=== PATIENT | male | born 1980 | race Caucasian/White ===

== ENCOUNTER 2023-09-28 13:25 | Emergency (ER) | payer OTHER, SELFPAY ==
[2023-09-28 13:46] VITALS: BP 194/134
[2023-09-28 14:08] VITALS: BMI 30.6
[2023-09-28 14:13] VITALS: BP 154/114
--- NOTE | 2023-09-28 14:17 | ED.GENMED ---
History of Present Illness
General
Chief Complaint: Blood Pressure Problem
Source: patient
Exam Limitations: none
Time Seen by Provider: 09/28/23 14:08
Nursing documentation reviewed up to this point in time: agreed with
Travel History
Have you had any contact with someone who has COVID-19?: No
Do you have any symptoms of coronavirus? Fever > 100 degrees, chills, cough, shortness of breath, sore throat, loss of taste or smell, muscle aches, or headache?: No
History of Present Illness
History of Present Illness:
43-year-old male with past medical history of hypertension, bipolar disorder who presents to the emergency room from urgent care�he presents for evaluation of insomnia but was found to be hypertensive and tachycardic and was sent to the emergency
room to be assessed. Patient reports that for the past 3 days he has had significant difficulty sleeping�he says that he has slept about 7 hours over the past 3 nights, last night said that he basically did not get any sleep. He says that he went
to urgent care to discuss potential sleep aid and while he was there they found that he was hypertensive and tachycardic and so he was referred to the emergency department. Patient denies any symptoms�denies any chest pain, headache, shortness of
breath, dizziness, change in vision, change in speech, focal weakness or numbness or any other complaints. He does note that this morning--because he did not sleep last night and because he has 2 kids and is a single parent with a full-time job--he
took an old dose of Adderall he had leftover from an old prescription and also drank 2 cups of coffee so that he could function for the day and he believes this may have contributed to his hypertension and tachycardia. He also reports that he is
overdue for refill on his lisinopril which he takes daily and has not been able to take over the past 2 days.
Past History
Past History
ED Past Medical History: None
ED Past Surgical History: None
Social History
Tobacco: Smoker
Living: with family
Review of Systems
Review of Systems
All Other Systems: ROS reviewed and negative except as documented in HPI and ROS
Constitutional: Denies fever
Respiratory: Denies cough or trouble breathing
Cardiac: Denies chest pain or palpitations
ABD/GI: Denies abdominal pain, nausea or vomiting
: Denies flank pain
Musculoskeletal: Denies neck pain or back pain
Neurological: Denies dizzy, headache, weakness or numbness
Phy Exam
Physical Exam
Physical Exam:
General: Awake, alert, oriented x3; no acute distress
Head: Normocephalic, atraumatic
Eyes: Conjunctiva normal, EOMI
Throat: Airway intact, handling secretions
Neck: Trachea midline, supple without meningismus
Lungs: Clear to auscultation bilaterally, no wheezing, rales, rhonchi
Heart: Tachycardia with regular rhythm, no murmurs, gallops, or rubs
Abd: Soft, non distended, nontender
Neuro: Cranial nerves grossly intact, speech fluid
Skin: no rash
Extremities: No edema in extremities, equal pulses in all extremities
Scores
Heart Failure Risk
Heart Failure Risk Score: Not Applicable
Heart Score for Chest Pain Patients
STEMI patient?: Not applicable
Withdrawal Assessment of Alcohol
Withdrawal Assessment Completed?: Not applicable
Course
Orders/Labs/Results
Orders:
Orders
09/28/23 13:50
Electrocardiogram (*1) Urgent
Reason for Study: Hypertension, Benign
EKG- Treatment ONCE
09/28/23 14:07
Complete Blood Count/With Diff Urgent
Comprehensive Metabolic Panel Urgent
Troponin I Urgent
09/28/23 14:17
Lisinopril [Zestril] 10 mg PO NOW STA
Abnormal Lab Results
09/28/23
14:07
WBC 11.3 H 10^3/uL
(4.8-10.8)
Absolute Neuts (auto) 7.0 H 10^3/uL
(1.4-6.5)
Absolute Monos (auto) 0.9 H 10^3/uL
(0.1-0.6)
Glucose 124 H mg/dl
(70-99)
Calcium 10.9 H mg/dl
(8.4-10.2)
Total Protein 8.3 H g/dl
(6.3-8.2)
Albumin 5.2 H g/dl
(3.5-5.0)
09/28/23 14:07
09/28/23 14:07
Vital Signs
Initial and Last Documented VS:
Initial Vital Signs
Temp Pulse Resp BP Pulse Ox
36.8 C 137 22 194/134 99
09/28/23 13:46 09/28/23 13:46 09/28/23 13:46 09/28/23 13:46 09/28/23 13:46
Last Documented Vital Signs
Temp Pulse Resp BP Pulse Ox
36.8 C 94 18 164/104 94
09/28/23 13:46 09/28/23 14:45 09/28/23 14:30 09/28/23 14:30 09/28/23 14:45
MDM/Problems Addressed
Differential Diagnosis Includes:
Hypertension related to medication noncompliance, increased caffeine as well as Adderall
MDM/Problems Addressed:
43-year-old male presents for evaluation of insomnia�initially presented to urgent care and was found to have significant hypertension and tachycardia and so was referred to the emergency room. He has no symptoms of hypertensive emergency, no
palpitations, admits that he has not taken his blood pressure medicine for 2 days as he is overdue for prescription refill, also took increased caffeine and an old dose of Adderall this morning due to his issues with insomnia. Suspect these are the
driving factors behind his abnormal vital signs. He was quite hypertensive and tachycardic in triage; vital signs have greatly improved by the time of my initial assessment with a blood pressure of 154/114 and a heart rate of 101. EKG shows sinus
tachycardia. He had screening labs sent in triage which are pending. Will plan to give him a dose of his home blood pressure medication. Will hold on aggressive blood pressure control given marked improvement with simple observation already and
complete absence of symptoms of hypertensive emergency. Will reassess after the above�suspect from a blood pressure perspective he can likely be discharged with a refill for his lisinopril and can follow-up with his primary doctor assuming labs are
normal. Regarding his primary complaint which is his insomnia: Triage note mentions that he was 'started on Lamictal for bipolar' but he has been on Lamictal at a regular dose for 6 months so somewhat lower suspicion that this is a primary cause of
his insomnia. He says he has already tried Benadryl and melatonin without success will likely prescribe short-term sleep aid and have patient discuss further management with his primary physician.
Labs reviewed: CBC unremarkable, CMP no clinically significant abnormalities. Undetectable troponin. Blood pressure reasonable here at 164/104�significant improved from triage and suspect that will continue to improve with compliance with his
blood pressure medication. Heart rate sinus rhythm on monitor with rate in the low 90s. Advised patient to avoid caffeine and Adderall to prevent additional tachycardia and hypertension. Will prescribe short-term sleep aid and encouraged him to
follow-up with his primary doctor to discuss further management of his insomnia. Refill prescription on his lisinopril. Patient comfortable with this plan. Spoke about return precautions all questions answered.
Acute Exacerbation and/or Progression of Chronic Illness: HTN
*Pulse Oximetry
Patient hypoxic: no
*EKG
Interpreted by ED Provider?: Yes
Heart Rate: 107
Rate: tachycardiac
Rhythm: sinus
[place]: normal axis
Interval: normal interval
QRS Pattern: normal QRS
Ischemia: no ischemia
*Critical Care Note
Total Time (30-74mins, 75-104mins- exclusive of procedures): Not Applicable
Data Reviewed
Source: patient
ED Attending Note
-
Portions of this chart may have been created with voice recognition software.� Occasional wrong word or��sound alike� substitutions may have occurred due to the inherent limitations of voice recognition software.
Discharge Plan
Departure
Patient Disposition: Home (Routine Discharge)
Date of Disposition: 09/28/23
Time of Disposition: 15:00
Patient with high blood pressure during this ER visit?: Yes
Discharge Problem:
Insomnia, Hypertension
Instructions: Insomnia (DC), BLOOD PRESSURE
Prescriptions:
New
zolpidem [Ambien CR] 6.25 mg tablet,ext release multiphase
6.25 mg PO HS PRN (Reason: insomnia) Qty: 10 0RF
lisinopril 10 mg tablet
10 mg PO DAILY Qty: 30 0RF
No Action
prednisone 50 MG tablet
50 mg PO DAILY Qty: 3 0RF
epinephrine [EpiPen] 0.3 MG/0.3/SYRINGE auto-injector
0.3 mg IM PRN PRN (Reason: allergic reaction) Qty: 3 0RF
Referrals:
Richard Boo CRNP [Family Provider] - Follow up in 5-7 days
Activity Restrictions/Additional Instructions:
Thank you for visiting the Emergency Department at [facility].
1. Please schedule a follow up appointment as directed. Call first thing tomorrow morning to make an appointment.
2. If indicated, please take your medications as instructed and indicated on discharge paperwork.
3. If any of your symptoms do not improve, or persist, or become more severe within 6-12 hours, please return to the emergency department for further care.
4. Please return to the emergency department if you develop a headache, neck pain/stiffness, fever greater than 100.4F, chest pain, shortness of breath, persistent nausea, vomiting, slurred speech, difficulty walking, numbness/tingling, weakness,
signs of infection or any other symptoms that are worrisome to you.
Please call [phone] if you have any questions.
Interventions
Interventions:
*Risk Screen - Suicide Last Done: 09/28/23 13:46
*General Assessment Last Done: 09/28/23 13:46
*Neglect/Abuse Screening Last Done: 09/28/23 13:46
ED- Cardiac Assessment Last Done: 09/28/23 14:18
ED- Neurological Assessment Last Done: 09/28/23 14:18
ED- Pulmonary Assessment Last Done: 09/28/23 14:18
Discharge Date and Time
Print Language: SAMMARINESE
[2023-09-28 14:21] LABS: % Basophils 0.7 % (0-2); % Eosinophils 1.4 % (0-6); % Immature Granulocytes 0.4 % (0-0.5); % Lymphocytes 28.2 % (20.5-51.1); % Monocytes 7.7 % (1.7-9.3); % Neutrophils 61.6 % (42.2-75.2); Absolute Basophils 0.1 10^3/uL (0-0.2); Absolute Eosinophils 0.2 10^3/uL (0-0.7); Absolute Lymphocytes 3.2 10^3/uL (1.2-3.4); Absolute Monocytes 0.9 10^3/uL (0.1-0.6); Hematocrit 45.4 % (39.0-52.0); Hemoglobin 16.8 g/dL (13.0-18.0); Mean Corpuscular Hgb 30.5 pg (27.0-31.0); Mean Corpuscular Volume 82.5 fL (80.0-94.0); Mean Platelet Volume 8.8 fL (7.4-10.4); Nucleated Red Blood Cells % 0 % (-); Platelet Count 310 10^3/uL (130-400); Red Cell Dist. Width 12.1 % (11.5-14.5); White Blood Cell Count 11.3 10^3/uL (4.8-10.8)
[2023-09-28] MEDS: ZESTRIL 10 MG PO (14:23)
[2023-09-28 14:30] VITALS: BP 164/104
[2023-09-28 14:36] LABS: ALT (SGPT) 49 U/L (0-50); AST (SGOT) 48 U/L (17-59); Albumin 5.2 g/dl (3.5-5.0); Alkaline Phosphatase 72 U/L (38-126); Blood Urea Nitrogen 17 mg/dl (9-20); Calcium 10.9 mg/dl (8.4-10.2); Carbon Dioxide 26 mmol/L (22-30); Chloride 103 mmol/L (98-107); Estimated Creatinine Clearance 114 ml/min; Glucose 124 mg/dl (70-99); Potassium 3.7 mmol/L (3.5-5.1); Sodium 139 mmol/L (135-145); Total Bilirubin 0.8 mg/dl (0.2-1.3); Total Protein 8.3 g/dl (6.3-8.2); eGFR > 60.00
[2023-09-28 14:48] LABS: Troponin I < 0.012 ng/ml
[2023-09-28 15:13] VITALS: BP 158/114
== END 2023-09-28 15:24 | disposition home or self-care (01) ==
LOC: EMR 13:25
PROVIDERS: Emergency Medicine; EMERGENCY PHYSICIAN Emergency Medicine; FAMILY PHYSICIAN Nurse Practitioner Family
DX: G47.00 Insomnia, unspecified (principal); I10 Essential (primary) hypertension; F31.9 Bipolar disorder, unspecified; F17.200 Nicotine dependence, unspecified, uncomplicated
CPT/HCPCS: 99284; 80053; 84484; 85025; 93005